=== PATIENT | male | born 1980 | race Caucasian/White ===

== ENCOUNTER 2017-06-08 13:47 | Emergency (ER) | payer OTHER ==
[~2017-06-08] VITALS: Ht 188 cm; Wt 102.1 kg
[~2017-06-08 13:47] MED LIST: TEST75GE IM
--- NOTE | 2017-06-08 14:00 | NUR ---
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 APPEARS IN NO APPARENT DISTRESS,. RESPIRATION EVENA AND UNLABORED. VSS. GOWNED PT AND PLACED ON TELE MONITOR
--- NOTE | 2017-06-08 14:08 | NUR ---
EKG IN PROGRESS
[2017-06-08 14:27] LABS: BASOPHILS # (AUTO) 0.1 /CMM (0.0-0.2); BASOPHILS % (AUTO) 0.7 % (0.0-2.0); EOSINOPHILS # (AUTO) 0.1 /CMM (0.0-0.7); EOSINOPHILS % (AUTO) 1.3 % (0.0-6.0); HEMATOCRIT 39 % (39-51); HEMOGLOBIN 13.1 g/dL (13.5-17.5); LYMPHOCYTES # (AUTO) 1.4 /CMM (0.8-4.8); MEAN CORPUSCULAR HEMOGLOBIN 30 PG (26.0-33.0); MEAN CORPUSCULAR HGB CONC 34 g/dl (31.0-36.0); MEAN CORPUSCULAR VOLUME 88 fL (80-96); MONOCYTES # (AUTO) 0.4 /CMM (0.1-1.30); MONOCYTES % (AUTO) 5.7 % (2.0-12.0); NEUTROPHILS # (AUTO) 5.8 /CMM (1.8-8.9); NEUTROPHILS % (AUTO) 74.3 % (43.0-81.0); PLATELET COUNT (AUTO) 300 /CMM (150-450); RDW COEFFICIENT OF VARIATION 11.8 (11.5-15.0); RED BLOOD CELL COUNT(AUTO) 4.43 MIL/uL (4.5-6.0); WHITE BLOOD COUNT (AUTO) 7.8 K/uL (4.3-11.0)
[2017-06-08 14:41] LABS: CALCIUM, SERUM 8.7 mg/dL (8.5-10.1); CARBON DIOXIDE 31 mmol/L (21-32); CHLORIDE 105 mmol/L (98-107); CREATININE 1.1 mg/dL (0.6-1.3); GLUCOSE 91 mg/dL (74-106); SODIUM SERUM 141 mmol/L (136-145); UREA NITROGEN, BLOOD 17 mg/dL (7-18)
[2017-06-08 14:50] LABS: TROPONIN I < 0.017 ng/mL (0.00-0.056)
--- NOTE | 2017-06-08 19:25 | NUR ---
Patient discharged to home in stable condition. Written and verbal after care instructions given. Patient verbalizes understanding of instruction.IV removed. Catheter intact and site benign. Pressure and 4x4 applied to site. No bleeding noted.
[2017-06-08 19:26] VITALS: BP 120/64
== END 2017-06-08 19:26 | disposition home or self-care (01) ==
LOC: ER 13:49
DX: R00.2 Palpitations (principal); R55 Syncope and collapse; F12.90 Cannabis use, unspecified, uncomplicated; I10 Essential (primary) hypertension; J45.909 Unspecified asthma, uncomplicated; Z86.718 Personal history of other venous thrombosis and embolism
CPT/HCPCS: 36415; 71010; 80048; 80305; 84484 ×2; 85025; 85378; 93005 ×2; 96360; 99285; A4606; J7030; Z7610

== ENCOUNTER 2017-12-20 09:49 | Emergency (ER) | payer MEDICAID, OTHER ==
[~2017-12-20] VITALS: Ht 188 cm; Wt 104.3 kg
[2017-12-20 11:04] LABS: BASOPHILS % (AUTO) 0.4 % (0.0-2.0); EOSINOPHILS % (AUTO) 2.5 % (0.0-6.0); HEMATOCRIT 43 % (39-51); HEMOGLOBIN 14.2 g/dL (13.5-17.5); LYMPHOCYTES # (AUTO) 1.4 /CMM (0.8-4.8); LYMPHOCYTES % (AUTO) 20.5 % (20.0-44.0); MEAN CORPUSCULAR HGB CONC 33 g/dl (31.0-36.0); MEAN CORPUSCULAR VOLUME 87 fL (80-96); MONOCYTES # (AUTO) 0.3 /CMM (0.1-1.30); MONOCYTES % (AUTO) 4.7 % (2.0-12.0); NEUTROPHILS # (AUTO) 4.8 /CMM (1.8-8.9); NEUTROPHILS % (AUTO) 71.9 % (43.0-81.0); PLATELET COUNT (AUTO) 327 /CMM (150-450); RED BLOOD CELL COUNT(AUTO) 4.93 MIL/uL (4.5-6.0); WHITE BLOOD COUNT (AUTO) 6.7 K/uL (4.3-11.0)
--- NOTE | 2017-12-20 11:05 | NUR ---
Recieved patient at this time. Patient is a/ox4, lying in bed. Patient is here because he is been having on/off chest pain for the last 2 weeks. Non radiating, non provoked. Pt gowned and placed on cont monitoring. EKG done. All needs are attended, kept warm and comfortable. Will continue to monitor
[2017-12-20 11:13] LABS: CALCIUM, SERUM 8.9 mg/dL (8.5-10.1); CARBON DIOXIDE 29 mmol/L (21-32); CHLORIDE 103 mmol/L (98-107); CREATININE 0.9 mg/dL (0.6-1.3); GLUCOSE 95 mg/dL (74-106); SODIUM SERUM 140 mmol/L (136-145); UREA NITROGEN, BLOOD 19 mg/dL (7-18)
[2017-12-20 11:22] LABS: TROPONIN I < 0.017 ng/mL (0.00-0.056)
--- NOTE | 2017-12-20 11:55 | NUR ---
IV removed. Catheter intact and site benign. Pressure and 4x4 applied to site. No bleeding noted. Patient discharged to home in stable condition. Written and verbal after care instructions given. Patient verbalizes understanding of instruction.
[2017-12-20 11:56] VITALS: BP 125/88
--- NOTE | 2017-12-20 11:59 | NUR ---
Note rigoberto in EDM - 12/20/17 at 1200 by RODRIGUEZ Patient discharged to home in stable condition. Written and verbal after care instructions given. Patient verbalizes understanding of instruction. Assisted patient to the waiting room, pt's friends waiting for him in the waiting room.
== END 2017-12-20 12:03 | disposition home or self-care (01) ==
LOC: ER 09:50
DX: R07.9 Chest pain, unspecified (principal); R00.2 Palpitations; I10 Essential (primary) hypertension; J45.909 Unspecified asthma, uncomplicated; F12.10 Cannabis abuse, uncomplicated; Z90.89 Acquired absence of other organs
CPT/HCPCS: 36415; 71045; 80048; 84484; 85025; 93005 ×3; 99285; A4606; Z7610

== ENCOUNTER 2018-08-16 10:16 | Emergency (ER) | payer MEDICAID ==
[~2018-08-16] VITALS: Ht 188 cm; Wt 108.0 kg
[2018-08-16] MEDS ORDERED: LIDOCAINE 1% INJ 50 ML MDV IJ ONE (10:45)
--- NOTE | 2018-08-16 10:54 | NUR ---
37 Y/O MALE PLACED IN BED 13 C/O LACERATION TO FINGER. PT SEEN BY DR. ERAZO. LACERATION SET UP AT BEDSIDE.
--- NOTE | 2018-08-16 11:00 | NUR ---
PT IRRIGATING WOUND FOR 10 MINUTES UNDER TAP WATER
[2018-08-16] MEDS: LIDOCAINE 1% INJ 50 ML MDV IJ ONE (11:01)
[2018-08-16] MEDS ORDERED: TDAP [DIPH/PERTUSSIS/TET] 0.5 ML VIAL IM ONE (11:02)
[2018-08-16] MEDS: TDAP [DIPH/PERTUSSIS/TET] 0.5 ML VIAL IM ONE (11:06)
--- NOTE | 2018-08-16 11:07 | NUR ---
TDAP SHOT GIVEN IN RIGHT DELTOID
[2018-08-16] MEDS ORDERED: BACITRACIN ZINC OINT PACKET 1 EA PACKET TP ONE (11:22)
[2018-08-16 11:27] VITALS: BP 143/84
--- NOTE | 2018-08-16 11:28 | NUR ---
LACERATION SUTURED. BACITRACIN APPLIED TO WOUND. FINGER SPLINT APPLIED TO FINGER. ACI WITH RX GIVEN. PT DISCHARGED HOME TO FOLLOW UP IN2 DAYS FOR WOUND RE-EVALUATION.
== END 2018-08-16 11:35 | disposition home or self-care (01) ==
LOC: ER 10:19
DX: S61.210A Laceration without foreign body of right index finger without damage to nail, initial encounter (principal); J45.909 Unspecified asthma, uncomplicated; I10 Essential (primary) hypertension; Z90.89 Acquired absence of other organs; Z98.890 Other specified postprocedural states; W26.0XXA Contact with knife, initial encounter; Y93.89 Activity, other specified; Y92.89 Other specified places as the place of occurrence of the external cause; Y99.8 Other external cause status
CPT/HCPCS: 90715; A4606; A6402; J3490; Z7610

== ENCOUNTER 2019-02-05 15:08 | Emergency (ER) | payer BC, MEDICAID ==
[~2019-02-05] VITALS: Ht 188 cm; Wt 113.4 kg
--- NOTE | 2019-02-05 15:48 | NUR ---
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
[2019-02-05 16:34] VITALS: BP 138/87
--- NOTE | 2019-02-05 16:35 | NUR ---
Patient discharged to home in stable condition. Written and verbal after care instructions given. Patient verbalizes understanding of instruction. Crutches dispensed. Pt instructed on proper use of crutches. Patient able to demonstrate correct use of crutches. PT AMBULATED OUT WITH CRUTCHES. VSS. NAD NOTED.
== END 2019-02-05 16:35 | disposition home or self-care (01) ==
LOC: ER 15:15
DX: S90.31XA Contusion of right foot, initial encounter (principal); J45.909 Unspecified asthma, uncomplicated; I10 Essential (primary) hypertension; F12.10 Cannabis abuse, uncomplicated; Z90.89 Acquired absence of other organs; Z98.890 Other specified postprocedural states; W18.09XA Striking against other object with subsequent fall, initial encounter; Y93.B9 Activity, other involving muscle strengthening exercises; Y92.89 Other specified places as the place of occurrence of the external cause; Y99.8 Other external cause status
CPT/HCPCS: 73630-TC

== ENCOUNTER 2019-10-28 17:05 | Emergency (ER) | payer BC, MEDICAID ==
[~2019-10-28] VITALS: Ht 188 cm; Wt 122.5 kg
--- NOTE | 2019-10-28 17:33 | NUR ---
CAME IN FOR L HAND PAIN AND SWELLING S/P PUNCHING WALL THIS AFTERNOON. TO ER BED 11, HOOKED TO MONITOR AND POX, CHANGED TO HOSP GOWN, WARM BLANKET PROVIDED, PATIENT AOx 4, BREATHING EVEN AND UNLABORED, CHANTAL MICHAELS AT BEDSIDE
--- NOTE | 2019-10-28 18:16 | NUR ---
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
--- NOTE | 2019-10-28 18:48 | NUR ---
Patient discharged to home in stable condition. Written and verbal after care instructions given. Patient verbalizes understanding of instruction.
[2019-10-28 18:49] VITALS: BP 129/72
== END 2019-10-28 18:49 | disposition home or self-care (01) ==
LOC: ER 17:08
DX: S60.222A Contusion of left hand, initial encounter (principal); I10 Essential (primary) hypertension; J45.909 Unspecified asthma, uncomplicated; Z90.89 Acquired absence of other organs; Z98.890 Other specified postprocedural states; W22.01XA Walked into wall, initial encounter; Y93.89 Activity, other specified; Y92.89 Other specified places as the place of occurrence of the external cause; Y99.8 Other external cause status
CPT/HCPCS: 73130-TC

== ENCOUNTER → 2019-10-31 | Emergency (ER) | payer MEDICAID ==
[~2019-10-31] VITALS: Ht 188 cm; Wt 117.9 kg
[2019-10-31 18:42] LABS: HEMATOCRIT 43 % (39-51); HEMOGLOBIN 14.2 g/dL (13.5-17.5); LYMPHOCYTES # (AUTO) 2.4 /CMM (0.8-4.8); LYMPHOCYTES % (AUTO) 36.4 % (20.0-44.0); MEAN CORPUSCULAR HGB CONC 33 g/dl (31.0-36.0); MEAN CORPUSCULAR VOLUME 88 fL (80-96); MONOCYTES # (AUTO) 0.6 /CMM (0.1-1.30); MONOCYTES % (AUTO) 9.1 % (2.0-12.0); NEUTROPHILS # (AUTO) 3.6 /CMM (1.8-8.9); NEUTROPHILS % (AUTO) 54.5 % (43.0-81.0); PLATELET COUNT (AUTO) 281 /CMM (150-450); RED BLOOD CELL COUNT(AUTO) 4.84 MIL/uL (4.5-6.0); WHITE BLOOD COUNT (AUTO) 6.7 K/uL (4.3-11.0)
[2019-10-31 18:49] LABS: CALCIUM, SERUM 8.6 mg/dL (8.5-10.1); CREATININE 1.2 mg/dL (0.6-1.3); POTASSIUM 3.9 mmol/L (3.5-5.1)
--- NOTE | 2019-10-31 18:58 | NUR ---
patient came in to ther er c/o bright red blood per rectum x 1 episode this evening. On room air, breathing evenly and unlabored. kept comfortable, will continue to monitor accordingly.
--- NOTE | 2019-10-31 19:02 | NUR ---
Patient discharged to home in stable condition. Written and verbal after care instructions given. Patient verbalizes understanding of instruction.
[2019-10-31 19:03] VITALS: BP 158/88
== END | disposition home or self-care (01) ==
LOC: ER 18:16
DX: K62.5 Hemorrhage of anus and rectum (principal); I10 Essential (primary) hypertension; J45.909 Unspecified asthma, uncomplicated; Z90.89 Acquired absence of other organs; Z98.890 Other specified postprocedural states
CPT/HCPCS: 36415; 80048-TC; 85025-TC; 85730-TC